=== PATIENT | female | born 1945 | race Caucasian/White ===

== ENCOUNTER 2018-08-16 15:12 | Inpatient (IN) ==
[2018-08-16 15:45] LABS: Hematocrit 32.9 % (37.0-47.0); Hemoglobin 10.5 gm/dL (12.5-16.0); Mean Cell Volume 87.3 fl (78-100); Mean Corpuscular Hemoglobin 27.9 pg (27-31); Mean Corpuscular Hgb Conc 31.9 g/dl (32-36); Mean Platelet Volume 8.7 fl (8-12.5); Neutrophil # 14.3 K/mm3 (1.3-6.0); Neutrophil % 78.2 % (42-75.0); Platelet Count 469 K/mm3 (150-450); Red Blood Count 3.77 M/mm3 (4.2-5.4); Red Cell Distribution Width 14.1 % (11.5-14.0); White Blood Count 18.3 K/mm3 (4.0-10.5)
[2018-08-16] MEDS ORDERED: NORMAL SALINE 1,000 ML IV ONE (15:56)
[2018-08-16] MEDS ORDERED: KETOROLAC TROMETHAMINE 30 MG/ML VIAL IV ONE (15:56)
[2018-08-16 15:58] LABS: Anion Gap 13.9 mmol/L (6.8-13.8); BUN/Creatinine Ratio 19.6 (9.0-21.6); Bilirubin, Total 0.5 mg/dL (0.0-1.1); Calcium * 9.5 mg/dL (7.9-10.9); Carbon Dioxide 27.9 mmol/L (24-32.6); Potassium 3.8 mmol/L (3.4-4.6)
--- NOTE | 2018-08-16 16:17 | ERNOTE ---
Abdominal HPI - Narrative Date of Service: 08/16/18 - General Chief Complaint: Abdominal Pain Time Seen by Provider: 08/16/18 16:12 Source: patient Exam Limitations: no limitations - Immun/Allergies/Home Medications Immunizatons: IMMUNIZATION HX Immunizations Up to Date Yes Allergies/Adverse Reactions: Allergies No Known Allergies Allergy (Unverified 08/16/18 15:30) Home Medications: HOME MEDICATIONS levothyroxine 100 mcg tablet 100 mcg PO DAILY #30 tab 05/19/18 [Last Taken Unknown] Atorvastatin Calcium [Lipitor] 10 mg PO HS 08/16/18 [Last Taken Unknown] Glimepiride 1 mg PO DAILY 08/16/18 [Last Taken Unknown] Hydrochlorothiazide [Hydrodiuril] 25 mg PO DAILY 08/16/18 [Last Taken Unknown] Lisinopril [Zestril] 40 mg PO DAILY 08/16/18 [Last Taken Unknown] Tetrahydrz/Dext 70/Peg 400/Pvp [Eye Drops] 15 ml OPHTHALMIC (EYE) DAILY 08/16/18 [Last Taken Unknown] metFORMIN HCL [Metformin HCl] 500 mg PO BID 08/16/18 [Last Taken Unknown] - Pain Score Pain Score #1 Pain Score: 7 Abdominal Pain Onset Location: RUQ, LUQ, epigastric Pain Radiation: no radiation - History of Present Illness Narrative: 73 yr old with history of DM, HTN , Hypothyroidism, and s/p C- section x 3 presents with one week history or upper abdominal pain. Reports it is intermittent but fairly frequent. Movement worsens her pain slightly. Laying down improves slightly. Presently rates her pain 7/10. Describes as "sore". Reports nausea with earlier emesis and dry heaves. Denies any emesis or diarrhea in the past 24 hrs. Denies any fever. Last ate this morning at 7 am. Date (Duration): 08/16/18 Time (Timing): 16:12 Timing: constant Quality: moderate, other - "sore" Activities at Onset: none Modifying Factors - (Improves): Present: rest Modifying Factors - (Worsens): Present: movement Associated Symptoms: Present: nausea, vomiting, loss of appetite. Absent: fever/chills Prior Abdominal Problems: Present: none Review of Systems - Review of Systems Constitutional: Absent: fever, weight loss EYE: Present: no symptoms reported ENT: Present: no symptoms reported Respiratory: Present: no symptoms reported Cardiology: Present: no symptoms reported Gastrointestinal/Abdominal: Present: nausea, vomiting, diarrhea, abdominal pain, eating less, drinking less Genitourinary: Absent: frequency, pain, dysuria, decreased urinary output Musculoskeletal: Present: no symptoms reported Skin: Present: no symptoms reported Neurological: Present: no symptoms reported Endocrine: Present: no symptoms reported Hematologic/Lymphatic: Present: no symptoms reported Psych: Present: no symptoms reported Medical History (Updated 08/16/18 @ 15:31 by Anne Lei RN) History of hypothyroidism Hx of diabetes mellitus Hx of primary hypertension Surgical History: Surgical History (Updated 08/16/18 @ 15:31 by Anne Lei RN) Hx of section Family History: Family History (Updated 08/16/18 @ 15:31 by Anne Lei RN) Other No pertinent family history Social History: Preferred Language Georgian Smoking Status Former smoker Alcohol Use none Drug Use none No Social History Section defined Physical Exam - Physical Exam General Appearance: Present: wd/wn, alert, no apparent distress Head Exam: Present: normal inspection, no evidence of injury Eye Exam: Normal inspection: bilateral, PERRL: bilateral, EOMI: bilateral Ears, Nose, Throat: Present: normal ENT inspection, normal pharynx. Absent: dry mucous membranes Neck: Present: normal inspection Respiratory: Present: no respiratory distress, normal breath sounds, no accessory muscle use, lungs clear Cardiovascular/Chest: Present: regular rate, rhythm, no murmur Gastrointestinal/Abdominal: Present: nondistended, soft, tenderness - RUQ, Epigastric region and LUQ, abnormal bowel sounds - decreased bowel sounds Back Exam: Present: normal inspection, normal range of motion, no CVA tenderness Extremity Exam: Present: normal inspection, non-tender, normal range of motion, no edema Neurological Exam: Present: alert, oriented, normal mood/affect, no motor/se nsory deficits, other - Talkative Skin Exam: Present: normal color, warm/dry Progress - Results and Orders Patient's Lab Results:: I have reviewed the patient's lab results. - CBC - WBC ^ 18.3, Hgb 10.5, Hct 32.9, Plt 469 CMP - Sodium 135, Potassium 3.8, BUN 22, Cr 1.12, Glucose 109, Calcium 9.5, AST 17, ALT 22, Alk phos 75, Amylase ^ 142, Lipase ^ 643 - Vital Signs Patient's Vital Signs:: I have reviewed the patient's vital signs. Vital Signs: Vital Signs 08/16/18 15:26 Temperature 36.2 C Pulse Rate 85 Respiratory Rate 15 Blood Pressure 177/68 H O2 Sat by Pulse Oximetry 100 - CT/Ultrasound CT/Ultrasound Narrative: Ct abd/pelvis: IMPRESSION: 1. Findings suggestive of acute cholecystitis with cholelithiasis, gallbladder wall thickening and adjacent pericholecystic fluid. Questionable choledocholithiasis with a small 1 to 2 mm stone at the distal aspect of the common bile duct. There is no significant dilatation of the common bile duct. Recommend clinical correlation. 2. Multiple scattered small indeterminate pulmonary nodules at the visualized lung bases, the largest measures up to 4 mm. Recommend follow-up dedicated noncontrast enhanced chest CT on a nonemergent basis to further evaluate. 3. Nonvisualization of the appendix. Ultrasound gallbladder - Numerous gallstones with thickened gallbladder wall - Progress/Reassessment Chief Complaint: Abdominal Pain Progress Note-Subjective: 08/16/18 16:17 Reviewed test results with patient and . 08/16/18 17:45 Reports "medicine helped" Denies any abdominal pain presently 08/16/18 20:[address] Heart who graciously agreed to come into the ER and see the patient. 08/16/18 21:14 Dr. Heart came in, reviewed the chart, images and examined patient. 08/16/18 21:54 Dr. Heart graciously accepted the patient for admission Departure Clinical Impression: Cholecystitis - Departure Disposition: Still a patient Condition: Good
[2018-08-16] MEDS ORDERED: DIATRIZOATE MEGLUMINE, SODIUM 30 ML BTL PO ONE (16:18)
[2018-08-16 18:52] LABS: Urine Appearance Slightly Cloudy (CLEAR); Urine Bilirubin Negative (NEGATIVE); Urine Blood 5 /ul (NEGATIVE); Urine Color Yellow; Urine Ketone Negative (NEGATIVE); Urine Nitrite Negative (NEGATIVE); Urine Protein Negative (NEGATIVE); Urine Urobilinogen Normal (NORMAL); Urine pH 5.5 pH (5.0-7.0)
[2018-08-16 18:53] LABS: Urine Bacteria TRACE; Urine RBC 0-5 /hpf (0-5)
--- NOTE | 2018-08-16 22:01 | HP ---
Chief Complaint - Chief Complaint Date of Service: 08/16/18 Time of Service: 21:39 Chief Complaint: abdominal pain and vomiting History of Present Illness: Relatively sudden onset of epigastric pain with vomiting on 08/08/18. Apparently only vomited once. Then got "dry heaves" and was sore all over. She was able to eat this past week, but not so much. No fever or chills. 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 Not so much pain now. constipated this week, but diarrhea after CT contrast. CT shows thick walled GB with inflammation. Multiple stones. Mention made of possible CBD stone however LFT's normal and U/S shows normal size duct. WBC elevated. Hgb 10.5. Plt 463. Amylase 142, lipase 643. Medical History (Updated 08/16/18 @ 17:59 by Cyndy Barakat RN) History of hypothyroidism Hx of diabetes mellitus Hx of primary hypertension Macular degeneration Surgical History: Surgical History (Updated 08/16/18 @ 15:31 by Anne Lei RN) Hx of section Family History: Family History (Updated 08/16/18 @ 15:31 by Anne Lei RN) Other No pertinent family history Social History: Preferred Language Latvian Smoking Status Former smoker Alcohol Use none Drug Use none No Social History Section defined Lives with , independent in ADL's Review Of Systems (GEN) - Review of Systems Generalized/Overall Review: Absent: Chills, Fever EENTM: Present: No Symptoms Reported, Other - Unaware of MD---found on exam Respiratory: Present: Other - mild HALLMAN. Absent: Cough, Shortness of Breath Cardiac: Absent: Chest Pain, Edema, Palpitations Abdominal: Present: Vomiting, Abdominal Pain, Other - see HPI Genitourinary: Present: Nocturia - usually twice. Absent: Burning, Frequency, Incontinent Musculoskeletal: Present: No Symptoms Reported, Other - aches from "dry heaves" Neurological: Absent: Headache, Seizure, Weakness Skin: Present: No Symptoms Reported Endocrine: Present: No Symptoms Reported Immunizations: IMMUNIZATION HX Immunizations Up to Date Yes Allergies/Adverse Reactions: Allergies Allergy/AdvReac Type Severity Reaction Status Date / Time No Known Allergies Allergy Unverified 08/16/18 15:30 Home Medications: HOME MEDICATIONS levothyroxine 100 mcg tablet 100 mcg PO DAILY #30 tab 03/11/19 [Last Taken Unknown] Atorvastatin Calcium [Lipitor] 10 mg PO HS 08/16/18 [Last Taken Unknown] Glimepiride 1 mg PO DAILY 08/16/18 [Last Taken Unknown] Hydrochlorothiazide [Hydrodiuril] 25 mg PO DAILY 08/16/18 [Last Taken Unknown] Lisinopril [Zestril] 40 mg PO DAILY 08/16/18 [Last Taken Unknown] Tetrahydrz/Dext 70/Peg 400/Pvp [Eye Drops] 15 ml OPHTHALMIC (EYE) DAILY 08/16/18 [Last Taken Unknown] metFORMIN HCL [Metformin HCl] 500 mg PO BID 08/16/18 [Last Taken Unknown] Exam - Exam Vital Signs: Vital Signs - Last Taken Temp 36.2 C 08/16/18 15:26 Pulse 87 08/16/18 21:11 Resp 18 08/16/18 21:11 BP 147/52 08/16/18 21:11 Pulse Ox 98 08/16/18 21:11 Constitutional: Present: Alert, Oriented x3, Cooperative, No distress, Obese ENT Exam: Present: normal ENT inspection, other - dentures Eye Exam: bilateral eye: normal inspection - normal sclera Neck: Present: full range of motion, normal inspection Back Exam: Present: no CVA tenderness Breasts: Present: Exam deferred Respiratory: Present: lungs clear Cardiovascular/Chest: Present: regular rate, rhythm Abdomen: Present: soft, obese, negative Null sign, other - palpable GB, mildly tender. 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 nml as tested, normal cerebellar test Appearance: Present: appropriate appearance, appropriate insight, neat Eye contact: Present: cooperative, good eye contact, normal speech Thoughts: Present: normal thought pattern Diagnostic Studies: Abnormal Lab Results 08/16/18 08/16/18 08/16/18 Range/Units 15:39 15:39 18:20 WBC 18.3 H (4.0-10.5) K/mm3 RBC 3.77 L (4.2-5.4) M/mm3 Hgb 10.5 L (12.5-16.0) gm/dL Hct 32.9 L (37.0-47.0) % MCHC 31.9 L (32-36) g/dl RDW 14.1 H (11.5-14.0) % Plt Count 469 H (150-450) K/mm3 Immature Gran % (Auto) 1.40 H (0.001-0.429) % Immature Gran # (Auto) 0.26 H (0.000-0.0310) K/mm3 Neutrophils % 78.2 H (42-75.0) % Lymphocytes % 11.2 L (20-51) % Neutrophils # 14.3 H (1.3-6.0) K/mm3 Monocytes # 1.5 H (0.0-1.0) k/mm3 Anion Gap 13.9 H (6.8-13.8) mmol/L Est GFR (Non-Af Amer) 50 L (60-130) mL/min Albumin 3.0 L (3.4-5.0) gm/dl Amylase 142 H (25-115) U/L Lipase 643 H (73-393) U/L Urine Blood 5 H (NEGATIVE) /ul Ur Leukocyte Esterase 100 H (NEGATIVE) /ul Urine WBC 5-10 H (0-5) /hpf Ur Epithelial Cells 5-10 H (0-5) /hpf Laboratory Results WBC 18.3 K/mm3 (4.0-10.5) H 08/16/18 15:39 RBC 3.77 M/mm3 (4.2-5.4) L 08/16/18 15:39 Hgb 10.5 gm/dL (12.5-16.0) L 08/16/18 15:39 Hct 32.9 % (37.0-47.0) L 08/16/18 15:39 MCV 87.3 fl (78-100) 08/16/18 15:39 MCH 27.9 pg (27-31) 08/16/18 15:39 MCHC 31.9 g/dl (32-36) L 08/16/18 15:39 RDW 14.1 % (11.5-14.0) H 08/16/18 15:39 Plt Count 469 K/mm3 (150-450) H 08/16/18 15:39 MPV 8.7 fl (8-12.5) 08/16/18 15:39 Immature Gran % (Auto) 1.40 % (0.001-0.429) H 08/16/18 15:39 Immature Gran # (Auto) 0.26 K/mm3 (0.000-0.0310) H 08/16/18 15:39 78.2 % (42-75.0) H 08/16/18 15:39 11.2 % (20-51) L 08/16/18 15:39 8.0 % (0.0-9) 08/16/18 15:39 0.8 % (0.0-3.0) 08/16/18 15:39 0.4 % (0.0-1.0) 08/16/18 15:39 Nucleated RBC % 0.0 k/mm3 (0-1) 08/16/18 15:39 14.3 K/mm3 (1.3-6.0) H 08/16/18 15:39 2.05 k/mm3 (1.5-3.5) 08/16/18 15:39 1.5 k/mm3 (0.0-1.0) H 08/16/18 15:39 0.2 k/mm3 (0.0-0.7) 08/16/18 15:39 Absolute Basophils 0.1 k/mm3 (0.0-0.1) 08/16/18 15:39 Sodium 135 mmol/L (132-142) 08/16/18 15:39 135 mmol/L (130-142) 08/16/18 15:39 Potassium 3.8 mmol/L (3.4-4.6) 08/16/18 15:39 Chloride 97 mmol/L (97-106) 08/16/18 15:39 Carbon Dioxide 27.9 mmol/L (24-32.6) 08/16/18 15:39 13.9 mmol/L (6.8-13.8) H 08/16/18 15:39 BUN 22 mg/dL (3-23) 08/16/18 15:39 1.12 mg/dL (0.4-1.4) 08/16/18 15:39 Est GFR (Non-Af Amer) 50 mL/min (60-130) L 08/16/18 15:39 19.6 (9.0-21.6) 08/16/18 15:39 109 mg/dL (70-110) 08/16/18 15:39 Calcium 9.5 mg/dL (7.9-10.9) 08/16/18 15:39 Calcium Adj for Albumin 10.0 mg/dL (8.4-10.2) 08/16/18 15:39 0.5 mg/dL (0.0-1.1) 08/16/18 15:39 AST 17 U/L (0-48) 08/16/18 15:39 ALT 22 U/L (19-67) 08/16/18 15:39 75 U/L (50-170) 08/16/18 15:39 8.0 gm/dL (6.2-8.2) 08/16/18 15:39 3.0 gm/dl (3.4-5.0) L 08/16/18 15:39 Amylase 142 U/L (25-115) H 08/16/18 15:39 643 U/L (73-393) H 08/16/18 15:39 Yellow 08/16/18 18:20 Slightly cloudy (CLEAR) 08/16/18 18:20 5.5 pH (5.0-7.0) 08/16/18 18:20 Ur Specific [place] 1.010 SP.GR. (1.005-1.010) 08/16/18 18:20 Negative mg/dL (NEGATIVE) 08/16/18 18:20 Negative mg/dL (NEGATIVE) 08/16/18 18:20 Negative mg/dL (NEGATIVE) 08/16/18 18:20 5 /ul (NEGATIVE) H 08/16/18 18:20 Negative (NEGATIVE) 08/16/18 18:20 Negative mg/dl (NEGATIVE) 08/16/18 18:20 Normal EU/dl (NORMAL) 08/16/18 18:20 Ur Leukocyte Esterase 100 /ul (NEGATIVE) H 08/16/18 18:20 0-5 /hpf (0-5) 08/16/18 18:20 5-10 /hpf (0-5) H 08/16/18 18:20 Ur Epithelial Cells 5-10 /hpf (0-5) H 08/16/18 18:20 Trace (NONE) 08/16/18 18:20 Culture to follow 08/16/18 18:20 CT and U/S images and reports reviewed Assessment/Plan - Assessment/Plan (1) Acute calculous cholecystitis Assessment: Pamphlet on GB disease and GB surgery reviewed with her and her and given to them. Will place in observation for IVF's and antibiotics. Serial exams and repeat CBC in am. Problem: Acute
[2018-08-16] MEDS ORDERED: PIPERACILLIN SODIUM/TAZOBACTAM 2.25 GM VIAL IV SCH (22:15)
[2018-08-16] MEDS ORDERED: PIPERACILLIN SODIUM/TAZOBACTAM 3.375 GM in DEXTROSE 5 % IN WATER 100 ML IV ONE ×2 (22:30)
[2018-08-17] MEDS: RINGER'S SOLUTION,LACTATED 1,000 ML IV PRN ×3 (00:40→17:00)
[2018-08-17] MEDS: PIPERACILLIN SODIUM/TAZOBACTAM 3.375 GM in DEXTROSE 5 % IN WATER 100 ML IV SCH ×6 (05:40→21:49)
[2018-08-17 06:00] LABS: Hematocrit 29.1 % (37.0-47.0); Hemoglobin 9.3 gm/dL (12.5-16.0); Mean Cell Volume 87.4 fl (78-100); Mean Corpuscular Hemoglobin 27.9 pg (27-31); Mean Platelet Volume 8.9 fl (8-12.5); Neutrophil # 16.2 K/mm3 (1.3-6.0); Platelet Count 416 K/mm3 (150-450); Red Blood Count 3.33 M/mm3 (4.2-5.4); Red Cell Distribution Width 14.3 % (11.5-14.0); White Blood Count 20.3 K/mm3 (4.0-10.5)
[2018-08-17 06:12] LABS: BUN/Creatinine Ratio 15.5 (9.0-21.6); Calcium * 8.9 mg/dL (7.9-10.9); Carbon Dioxide 26.9 mmol/L (24-32.6); Estimated Creat Clear 40.8; Potassium 3.9 mmol/L (3.4-4.6)
[2018-08-17] MEDS: LEVOTHYROXINE SODIUM 100 MCG TABLET PO SCH (07:02)
[2018-08-17] MEDS: LISINOPRIL 40 MG TABLET PO SCH (08:50)
[2018-08-17] MEDS: HYDROCHLOROTHIAZIDE 25 MG TABLET PO SCH (08:50)
[2018-08-17] MEDS ORDERED: PEG ophthalmic (eye) SCH (09:00)
[2018-08-17] MEDS ORDERED: TETRAHYDRZ ophthalmic (eye) SCH (09:00)
[2018-08-17] MEDS ORDERED: DEXT ophthalmic (eye) SCH (09:00)
[2018-08-17] MEDS ORDERED: PVP ophthalmic (eye) SCH (09:00)
[2018-08-17] MEDS ORDERED: ceFAZolin SODIUM/DEXTROSE,ISO 2 GM/50 ML BAG IV ONE (09:25)
--- NOTE | 2018-08-17 09:33 | PN ---
Subjective - Date and Time Seen Date: 08/17/18 Time: 09:27 Subjective Narrative: States comfortable. Amylase/lipase to normal, however WBC increased to 20. Objective - Review of Systems Generalized/Overall Review: Denies: Chills, Fever EENTM: Reports: No Symptoms Reported Respiratory: Reports: No Symptoms Reported Cardiac: Reports: No Symptoms Reported. Denies: Chest Pain Abdominal: Reports: Other - pain across upper abdomen Genitourinary Symptoms: Reports: No Symptoms Reported Musculoskeletal Complaints: Reports: No Symptoms Reported Neurological: Reports: No Symptoms Reported Skin: Reports: No Symptoms Reported - Vitals Vitals: Last Vital Signs Temp 37.6 C 08/17/18 07:18 Pulse 81 08/17/18 08:50 Resp 14 08/17/18 07:18 BP 126/52 08/17/18 08:50 Pulse Ox 96 08/17/18 07:18 - Abnormal Lab Findings Abnormal Lab Findings: Abnormal Lab Results 08/16/18 08/16/18 08/16/18 Range/Units 15:39 15:39 18:20 WBC 18.3 H (4.0-10.5) K/mm3 RBC 3.77 L (4.2-5.4) M/mm3 Hgb 10.5 L (12.5-16.0) gm/dL Hct 32.9 L (37.0-47.0) % MCHC 31.9 L (32-36) g/dl RDW 14.1 H (11.5-14.0) % Plt Count 469 H (150-450) K/mm3 Immature Gran % (Auto) 1.40 H (0.001-0.429) % Immature Gran # (Auto) 0.26 H (0.000-0.0310) K/mm3 Neutrophils % 78.2 H (42-75.0) % Lymphocytes % 11.2 L (20-51) % Neutrophils # 14.3 H (1.3-6.0) K/mm3 Monocytes # 1.5 H (0.0-1.0) k/mm3 Anion Gap 13.9 H (6.8-13.8) mmol/L Est GFR (Non-Af Amer) 50 L (60-130) mL/min Random Glucose (70-110) mg/dL Albumin 3.0 L (3.4-5.0) gm/dl Amylase 142 H (25-115) U/L Lipase 643 H (73-393) U/L Urine Blood 5 H (NEGATIVE) /ul Ur Leukocyte Esterase 100 H (NEGATIVE) /ul Urine WBC 5-10 H (0-5) /hpf Ur Epithelial Cells 5-10 H (0-5) /hpf 08/17/18 08/17/18 Range/Units 06:00 06:00 WBC 20.3 H (4.0-10.5) K/mm3 RBC 3.33 L (4.2-5.4) M/mm3 Hgb 9.3 L (12.5-16.0) gm/dL Hct 29.1 L (37.0-47.0) % MCHC (32-36) g/dl RDW 14.3 H (11.5-14.0) % Plt Count (150-450) K/mm3 Immature Gran % (Auto) 0.90 H (0.001-0.429) % Immature Gran # (Auto) 0.19 H (0.000-0.0310) K/mm3 Neutrophils % 80.0 H (42-75.0) % Lymphocytes % 10.9 L (20-51) % Neutrophils # 16.2 H (1.3-6.0) K/mm3 Monocytes # 1.5 H (0.0-1.0) k/mm3 Anion Gap (6.8-13.8) mmol/L Est GFR (Non-Af Amer) 56 L (60-130) mL/min Random Glucose 114 H (70-110) mg/dL Albumin (3.4-5.0) gm/dl Amylase (25-115) U/L Lipase (73-393) U/L Urine Blood (NEGATIVE) /ul Ur Leukocyte Esterase (NEGATIVE) /ul Urine WBC (0-5) /hpf Ur Epithelial Cells (0-5) /hpf - Exam Constitutional: Present: Alert, Oriented x3, Cooperative, No distress ENT Exam: Present: normal ENT inspection Neck: Present: full range of motion Respiratory: Present: no respiratory distress Cardiovascular/Chest: Present: regular rate, rhythm Abdomen: Present: obese, tender - RUQ /Rectal: Present: Exam deferred Extremity: Present: normal range of motion, no pedal edema, no calf tenderness Skin Exam: Present: pallor 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 Explained operation, possible complications, possible need to convert cathy open operation or use drainage tube. After an interactive discussion, her and her 's questions answered to their apparent satisfaction and informed consent obtained. - Problems/Diagnosis (1) Acute calculous cholecystitis Problem: Acute
[2018-08-17] MEDS ORDERED: RINGER'S SOLUTION,LACTATED 1,000 ML IV PRN (10:39)
--- NOTE | 2018-08-17 13:15 | ANES ---
Anesthesia Pre Procedure Eval Vitals/Labs: Last Vital Signs Temp 37.6 C 08/17/18 10:33 Pulse 77 08/17/18 10:33 Resp 18 08/17/18 10:33 BP 101/40 08/17/18 10:33 Pulse Ox 96 08/17/18 10:33 Laboratory Last Values WBC 20.3 K/mm3 (4.0-10.5) H 08/17/18 06:00 RBC 3.33 M/mm3 (4.2-5.4) L 08/17/18 06:00 Hgb 9.3 gm/dL (12.5-16.0) L 08/17/18 06:00 Hct 29.1 % (37.0-47.0) L 08/17/18 06:00 MCV 87.4 fl (78-100) 08/17/18 06:00 MCH 27.9 pg (27-31) 08/17/18 06:00 MCHC 32.0 g/dl (32-36) 08/17/18 06:00 RDW 14.3 % (11.5-14.0) H 08/17/18 06:00 Plt Count 416 K/mm3 (150-450) 08/17/18 06:00 MPV 8.9 fl (8-12.5) 08/17/18 06:00 Immature Gran % (Auto) 0.90 % (0.001-0.429) H 08/17/18 06:00 Immature Gran # (Auto) 0.19 K/mm3 (0.000-0.0310) H 08/17/18 06:00 80.0 % (42-75.0) H 08/17/18 06:00 10.9 % (20-51) L 08/17/18 06:00 7.5 % (0.0-9) 08/17/18 06:00 0.4 % (0.0-3.0) 08/17/18 06:00 0.3 % (0.0-1.0) 08/17/18 06:00 Nucleated RBC % 0.0 k/mm3 (0-1) 08/17/18 06:00 16.2 K/mm3 (1.3-6.0) H 08/17/18 06:00 2.20 k/mm3 (1.5-3.5) 08/17/18 06:00 1.5 k/mm3 (0.0-1.0) H 08/17/18 06:00 0.1 k/mm3 (0.0-0.7) 08/17/18 06:00 Absolute Basophils 0.1 k/mm3 (0.0-0.1) 08/17/18 06:00 Sodium 136 mmol/L (132-142) 08/17/18 06:00 136 mmol/L (130-142) 08/17/18 06:00 Potassium 3.9 mmol/L (3.4-4.6) 08/17/18 06:00 Chloride 100 mmol/L (97-106) 08/17/18 06:00 Carbon Dioxide 26.9 mmol/L (24-32.6) 08/17/18 06:00 13.0 mmol/L (6.8-13.8) 08/17/18 06:00 BUN 16 mg/dL (3-23) 08/17/18 06:00 1.03 mg/dL (0.4-1.4) 08/17/18 06:00 Est GFR (Non-Af Amer) 56 mL/min (60-130) L 08/17/18 06:00 15.5 (9.0-21.6) 08/17/18 06:00 114 mg/dL (70-110) H 08/17/18 06:00 Calcium 8.9 mg/dL (7.9-10.9) 08/17/18 06:00 Calcium Adj for Albumin 10.0 mg/dL (8.4-10.2) 08/16/18 15:39 0.5 mg/dL (0.0-1.1) 08/16/18 15:39 AST 17 U/L (0-48) 08/16/18 15:39 ALT 22 U/L (19-67) 08/16/18 15:39 75 U/L (50-170) 08/16/18 15:39 8.0 gm/dL (6.2-8.2) 08/16/18 15:39 3.0 gm/dl (3.4-5.0) L 08/16/18 15:39 Amylase 34 U/L (25-115) 08/17/18 06:00 77 U/L (73-393) 08/17/18 06:00 Yellow 08/16/18 18:20 Slightly cloudy (CLEAR) 08/16/18 18:20 5.5 pH (5.0-7.0) 08/16/18 18:20 Ur Specific [place] 1.010 SP.GR. (1.005-1.010) 08/16/18 18:20 Negative mg/dL (NEGATIVE) 08/16/18 18:20 Negative mg/dL (NEGATIVE) 08/16/18 18:20 Negative mg/dL (NEGATIVE) 08/16/18 18:20 5 /ul (NEGATIVE) H 08/16/18 18:20 Negative (NEGATIVE) 08/16/18 18:20 Negative mg/dl (NEGATIVE) 08/16/18 18:20 Normal EU/dl (NORMAL) 08/16/18 18:20 Ur Leukocyte Esterase 100 /ul (NEGATIVE) H 08/16/18 18:20 0-5 /hpf (0-5) 08/16/18 18:20 5-10 /hpf (0-5) H 08/16/18 18:20 Ur Epithelial Cells 5-10 /hpf (0-5) H 08/16/18 18:20 Trace (NONE) 08/16/18 18:20 Culture to follow 08/16/18 18:20 HOME MEDICATIONS levothyroxine 100 mcg tablet 100 mcg PO DAILY #30 tab 05/19/18 [Last Taken Unknown] Areds 2 1 tab PO BID 08/16/18 [Last Taken Unknown] Atorvastatin Calcium [Lipitor] 10 mg PO HS 08/16/18 [Last Taken Unknown] Glimepiride 1 mg PO DAILY 08/16/18 [Last Taken Unknown] Hydrochlorothiazide [Hydrodiuril] 25 mg PO DAILY 08/16/18 [Last Taken Unknown] Lisinopril [Zestril] 40 mg PO DAILY 08/16/18 [Last Taken Unknown] metFORMIN HCL [Metformin HCl] 500 mg PO BID 08/16/18 [Last Taken Unknown] Allergies/Adverse Reactions: Allergies Allergy/AdvReac Type Severity Reaction Status Date / Time cat dander Allergy Intermediate Itching Verified 08/16/18 22:28 - Planned Procedure Planned Procedure: Ninfa Agnes Medication List Reviewed:: Yes Allergies Verified: Yes Medical History (Updated 08/16/18 @ 23:45 by Fay Juarez) History of hypothyroidism Hx of diabetes mellitus Hx of primary hypertension Macular degeneration Surgical History (Updated 08/16/18 @ 15:31 by Anne Lei, TIMOTEO) Hx of section Family History (Updated 08/16/18 @ 22:27 by Karen Felipe RN) Father Macular degeneration Other No pertinent family history - Family Anesthesia History Family History:: no untoward family reactions to anesthesia, no familial bleeding tendencies, no family history of clotting disorders, no family history of premature - Airway/Neck/Teeth Within Normal Limits:: Yes Teeth Condition: missing Denture Type: Full upper, Full lower Mallampatti Score: 3 Thyromental (T-M) distance: > 6 cm Mandibulo Hyoid distance: > 3 cm - Respiratory Respiratory Physical: lungs clear Smoking Status: Never smoker Discussed smoking cessation including day of surgery: No Sleep Apnea currently treated: No Sleep Apnea by current assessment: No Discussed Risks/Treatment of SANTIAGO: No - Cardiovascular Tolerate Activity: Fair Heart Sounds: S1 & S2, Regular - Anesthesia Assessment and Plan ASA Class: PS, II, E Anesthesia Type Plan: General ET
[2018-08-17] MEDS ORDERED: BUPIVACAINE HCL/EPINEPHRINE 50 ML VIAL IJ ONE (16:25)
[2018-08-17] MEDS ORDERED: MUPIROCIN 22 APPL TUBE TP ONE (16:34)
[2018-08-17] MEDS ORDERED: ONDANSETRON HCL/PF 2 MG/ML VIAL IV PRN (17:20)
--- NOTE | 2018-08-17 17:21 | ANES ---
Post Anesthesia Discharge - Transfer of Care Transfer of Care handoff given to nurse: Yes - Discharge from PACU Discharge from PACU when meets criteria: Yes - Discharge to ASU Discharge to ASU-no complications/pt stable: Yes
--- NOTE | 2018-08-17 17:22 | ANES ---
Post Anesthesia Assessment - Vital Signs Vitals: Last Vital Signs Temp 37.6 C 08/17/18 10:33 Pulse 77 08/17/18 10:33 Resp 18 08/17/18 10:33 BP 101/40 08/17/18 10:33 Pulse Ox 96 08/17/18 10:33 Airway Patency: Normal - Mental Status Level Of Consciousness: Awake - Pain Level Pain Score: 0 - N/V Assessment Nausea/Vomiting Presence: None Dehydration:: No
[2018-08-17] MEDS ORDERED: HYDROmorphone HCL 1 MG/ML DISP.SYRIN IV PRN (19:45)
[2018-08-17] MEDS: ROSUVASTATIN CALCIUM 10 MG TABLET PO SCH (21:49)
[2018-08-18] MEDS: oxyCODONE HCL/ACETAMINOPHEN 1 TAB TABLET PO PRN ×4 (01:30→19:11)
[2018-08-18] MEDS: PIPERACILLIN SODIUM/TAZOBACTAM 3.375 GM in DEXTROSE 5 % IN WATER 100 ML IV SCH ×6 (05:40→21:51)
[2018-08-18] MEDS: LEVOTHYROXINE SODIUM 100 MCG TABLET PO SCH (05:40)
[2018-08-18 06:17] LABS: Hematocrit 27.4 % (37.0-47.0); Hemoglobin 8.5 gm/dL (12.5-16.0); Mean Corpuscular Hemoglobin 27.6 pg (27-31); Mean Platelet Volume 9.1 fl (8-12.5); Neutrophil # 18.6 K/mm3 (1.3-6.0); Neutrophil % 84.4 % (42-75.0); Platelet Count 407 K/mm3 (150-450); Red Blood Count 3.08 M/mm3 (4.2-5.4); Red Cell Distribution Width 14.6 % (11.5-14.0); White Blood Count 22.1 K/mm3 (4.0-10.5)
[2018-08-18 06:23] LABS: Albumin * 2.1 gm/dl (3.4-5.0); Anion Gap 12.5 mmol/L (6.8-13.8); Bilirubin, Total 0.6 mg/dL (0.0-1.1); Ca. Corrected For Albumin 9.6 mg/dL (8.4-10.2); Calcium * 8.4 mg/dL (7.9-10.9); Carbon Dioxide 27.4 mmol/L (24-32.6); Potassium 3.9 mmol/L (3.4-4.6); Total Protein 6.2 gm/dL (6.2-8.2)
[2018-08-18 06:36] LABS: BUN/Creatinine Ratio 13.3 (9.0-21.6)
--- NOTE | 2018-08-18 07:14 | OR ---
Operative Report - Dictated Report Narrative: OPERATIVE REPORT DATE OF OPERATION: 08/17/2018 PREOPERATIVE DIAGNOSIS: Acute cholecystitis, cholelithiasis POSTOPERATIVE DIAGNOSIS: Severe acute cholecystitis, cholelithiasis OPERATION: Attempted laparoscopic converted to open cholecystectomy SURGEON: Forest Heart MD ANESTHESIA: General endotracheal Armando Barcenas CRNA INDICATIONS FOR PROCEDURE: The patient is a 73-year-old female who presented through the emergency room with a one-week history of upper abdominal pain. CT scan revealed thick-walled gallbladder with inflammation. Ultrasound confirmed acute cholecystitis with cholelithiasis. FINDINGS: Severe acute cholecystitis with cholelithiasis. Adhesions from previous C-sections precluding laparoscopic cholecystectomy NARRATIVE OF PROCEDURE: The patient was identified preoperatively and prior to the administration of anesthetic a multidisciplinary timeout was observed. With the patient in the supine position SCDs were applied, 2 g of intravenous Ancef administered, and general endotracheal anesthetic administered. The patient's a bdomen was prepped with Betadine solution and a generous operating field outlined with 4 sterile towels. The remainder the patient was covered with a sterile disposable drape. An infraumbilical skin incision was made. Dissection was carried through the previous infraumbilical scar tissue along the umbilical stalk until the fascia of the midline was opened. The peritoneum was elevated and incised to allow entry into the abdomen under direct vision. A forefinger was inserted. Palpation revealed clear space to the left of the umbilicus and below, however there were adhesions just above the umbilicus in the right upper quadrant. A Chavez cannula was placed in the abdomen insufflated with CO2. The laparoscopic camera was introduced in the abdomen briefly explored. The camera could be passed into the left upper quadrant however could not be passed under the falciform ligament into the right upper quadrant. The scope was directed inferiorly and then around omental adhesions into the right upper quadrant. The dome of the liver on the right could be seen however the transverse colon and gallbladder were densely adherent to the anterior abdominal wall such that even with repositioning the patient the area could not be safely approached laparoscopically. Accordingly decision was made to convert to an open operation. The fascia and peritoneum in the midline at the umbilicus were then closed with interrupted sutures of #1 Vicryl. Subcutaneous space was obliterated with 3-0 chromic and the skin was secured with interrupted vertical mattress sutures of 4-0 nylon. The umbilical incision was then covered with a towel. At this juncture a separate sponge needle and instrument count was obtained and was found to be correct. A 4 fingerbreadth right subcostal skin incision was made. Dissection was carried through subcutaneous tissue with electrocautery until the fascia of the rectus sheath was encountered. This was incised. The rectus muscle was elevated over clamped and divided with electrocautery. The posterior rectus sheath was opened. The peritoneum was then elevated and incised to allow entry into the abdomen under direct vision. The dome of the liver appeared normal. There was an intensely inflamed distended gallbladder adherent to the anterior abdominal wall. This was freed by blunt dissection allowing placement of a Bookwalter self-retaining retractor. A plane was developed between the body of the gallbladder and transverse colon down to the neck of the gallbladder. At this juncture it was determined that sufficient exposure could be obtained to proceed with cholecystectomy. The dome of the gallbladder was opened and clear bile was suctioned collapsing the gallbladder to obtain a better view. The puncture site was clamped and used for traction. Saline was injected under the peritoneal covering of the gallbladder and using electrocautery a plane was identified along the liver bed. The body of the gallbladder was gradually dis sected free from the liver bed by using blunt and electrocautery dissection until the gallbladder had been freed circumferentially down to just above the neck. The gallbladder was then crossclamped and divided and the specimen passed the back table for later submission. The neck of the gallbladder was then retracted and developed circumferentially toward the expected location of the cystic duct. The cystic artery was identified, doubly clipped, and divided. Eventually the gallbladder remnant was pedicled on a confidently identified cystic duct. The duct was doubly clipped and divided. The second portion of the gallbladder was passed to the back table for submission. The operative field was then irrigated with warm saline and suctioned clean taking care to remove all blood and clots including the area over the dome of the right lobe of the liver. The field was inspected and found to be hemostatic. The previously placed clips were intact. The cystic duct stump was judged to be insufficient to allow for cholangiogram. The gallbladder bed was hemostatic with no evidence of bile leak. Those portions of the small and large intestine visualized appeared normal and uninjured. After receiving a correct sponge needle instrument count attention was turned to closing the wound. The peritoneum and posterior rectus sheath were approximated with interrupted sutures of #1 Vicryl. The anterior rectus sheath was approximated with interrupted sutures of #1 Vicryl. Subcutaneous space was obliterated with interrupted sutures of 2-0 chromic. The skin was secured with remberto. The operative sites were washed and dried. The subcostal incision was dressed with Bactroban ointment folded 4 x 4's and Medipore tape. The umbilical incision was dressed with Bactroban ointment folded 2 x 2 large Band-Aid and Medipore tape. The operative procedure was terminated at this point. The patient tolerated the anesthetic and procedure well without complication. Estimated blood loss was less than 100 mL. The gallbladder was submitted to pathology. The patient was transferred to the recovery room awake, extubated, and in stable condition. The patient will be converted to inpatient status. Reviewed and electronically signed
--- NOTE | 2018-08-18 07:27 | PN ---
Dictated Progress Note - Date and Time Seen: Date: 08/18/18 - Patient seen twice Time: 07:27 - Progress Note Narrative: Vital Signs - Last Taken Temp 37.4 C 08/18/18 06:37 Pulse 85 08/18/18 06:37 Resp 20 08/18/18 06:37 BP 122/54 08/18/18 06:37 Pulse Ox 95 08/18/18 06:37 Abnormal/Pending Laboratory Last 24 HRS 08/18/18 08/18/18 06:00 06:00 WBC 22.1 H RBC 3.08 L Hgb 8.5 L Hct 27.4 L MCHC 31.0 L RDW 14.6 H Immature Gran % (Auto) 0.70 H Immature Gran # (Auto) 0.16 H Neutrophils % 84.4 H Lymphocytes % 9.2 L Neutrophils # 18.6 H Monocytes # 1.2 H Est GFR (Non-Af Amer) 47 L Random Glucose 131 H AST 53 H Albumin 2.1 L Culture 08/16/18 18:20 Urine Culture - Final Urine,Clean Catch No Pathogens Isolated 08/16/18 15:38 Blood Culture - Preliminary Blood NO GROWTH 24 HOURS 08/16/18 16:09 Blood Culture - Preliminary Blood NO GROWTH 24 HOURS POD#1 open cholecystectomy Vital signs normal. Pain is incisional and tolerable with Percocet. She has been out of bed. Dressings dry. No flatus. Tolerated some solid p.o. intake. Urine a little dark but bilirubin/LFTs normal Her abdomen is tympanitic but soft. Dressings are dry and intact. Will encourage pulmonary toilet, ambulation, and push fluids. Tentative discharge tomorrow
[2018-08-18] MEDS ORDERED: BISACODYL 5 MG TABLET.DR PO ONE (07:28)
[2018-08-18] MEDS: LISINOPRIL 40 MG TABLET PO SCH (08:19)
[2018-08-18] MEDS: HYDROCHLOROTHIAZIDE 25 MG TABLET PO SCH (08:19)
--- NOTE | 2018-08-18 18:49 | PN ---
Subjective - Date and Time Seen Date: 08/18/18 Time: 18:46 Objective - Review of Systems Generalized/Overall Review: Reports: Weakness. Denies: Chills, Fever EENTM: Denies: No Symptoms Reported Respiratory: Denies: No Symptoms Reported Cardiac: Denies: No Symptoms Reported Abdominal: Reports: Other - Incisional discomfort, has not passed gas Genitourinary Symptoms: Reports: Other - Has urinated but not much volume Musculoskeletal Complaints: Reports: No Symptoms Reported Neurological: Reports: No Symptoms Reported Skin: Reports: No Symptoms Reported - Vitals Vitals: Last Vital Signs Temp 36.8 C 08/18/18 18:19 Pulse 84 08/18/18 18:19 Resp 16 08/18/18 18:19 BP 116/48 08/18/18 18: Pulse Ox 96 08/18/18 18:19 - Abnormal Lab Findings Abnormal Lab Findings: Abnormal Lab Results 08/18/18 08/18/18 Range/Units 06:00 06:00 WBC 22.1 H (4.0-10.5) K/mm3 RBC 3.08 L (4.2-5.4) M/mm3 Hgb 8.5 L (12.5-16.0) gm/dL Hct 27.4 L (37.0-47.0) % MCHC 31.0 L (32-36) g/dl RDW 14.6 H (11.5-14.0) % Immature Gran % (Auto) 0.70 H (0.001-0.429) % Immature Gran # (Auto) 0.16 H (0.000-0.0310) K/mm3 Neutrophils % 84.4 H (42-75.0) % Lymphocytes % 9.2 L (20-51) % Neutrophils # 18.6 H (1.3-6.0) K/mm3 Monocytes # 1.2 H (0.0-1.0) k/mm3 Est GFR (Non-Af Amer) 47 L (60-130) mL/min Random Glucose 131 H (70-110) mg/dL AST 53 H (0-48) U/L Albumin 2.1 L (3.4-5.0) gm/dl - Exam Constitutional: Present: Alert, Oriented x3, Cooperative, No distress ENT Exam: Present: normal ENT inspection Neck: Present: normal inspection Breasts: Present: Exam deferred Respiratory: Present: no respiratory distress Cardiovascular/Chest: Present: regular rate, rhythm Abdomen: Present: other - Distended but soft. Tympanitic. Dressings dry and intact /Rectal: Present: Exam deferred Extremity: Present: normal range of motion, no pedal edema, no calf tenderness Skin Exam: Present: normal color Neurologic: Present: mental health program specialist II-XII nml as tested, normal cerebellar test, no motor/sensory deficits Appearance: Present: appropriate appearance, appropriate insight, neat Eye contact: Present: cooperative, good eye contact, normal speech Thoughts: Present: normal thought pattern Assessment/Plan Plan Narrative: Will encourage ambulation and continued use of incentive spirometry. Discussed the importance of drinking lots of liquids. Tentative discharge tomorrow - Problems/Diagnosis (1) Acute calculous cholecystitis Problem: Acute
[2018-08-18] MEDS: ROSUVASTATIN CALCIUM 10 MG TABLET PO SCH (21:51)
[2018-08-19] MEDS: oxyCODONE HCL/ACETAMINOPHEN 1 TAB TABLET PO PRN ×3 (03:42→14:56)
[2018-08-19] MEDS: PIPERACILLIN SODIUM/TAZOBACTAM 3.375 GM in DEXTROSE 5 % IN WATER 100 ML IV SCH ×4 (05:11→15:00)
[2018-08-19] MEDS: LEVOTHYROXINE SODIUM 100 MCG TABLET PO SCH (05:12)
[2018-08-19] MEDS ORDERED: BISACODYL 5 MG TABLET.DR PO ONE (06:41)
[2018-08-19 07:52] LABS: Hematocrit 27.2 % (37.0-47.0); Hemoglobin 8.4 gm/dL (12.5-16.0); Mean Cell Volume 89.5 fl (78-100); Mean Corpuscular Hemoglobin 27.6 pg (27-31); Mean Corpuscular Hgb Conc 30.9 g/dl (32-36); Neutrophil # 18.1 K/mm3 (1.3-6.0); Neutrophil % 85.1 % (42-75.0); Platelet Count 439 K/mm3 (150-450); Red Blood Count 3.04 M/mm3 (4.2-5.4); Red Cell Distribution Width 14.4 % (11.5-14.0); White Blood Count 21.3 K/mm3 (4.0-10.5)
[2018-08-19] MEDS: HYDROCHLOROTHIAZIDE 25 MG TABLET PO SCH (08:05)
[2018-08-19] MEDS: LISINOPRIL 40 MG TABLET PO SCH (08:05)
--- NOTE | 2018-08-19 18:06 | DS ---
(1) Acute calculous cholecystitis Problem: Acute Description of Stay: She was admitted to observation, started on IV antibiotics. Initially elevated amylase and lipase normalized. She was prepared for cholecystectomy. Had attempted laparoscopic cholecystectomy 08/17/18 which was converted to an open procedure due to inflammation and adhesions. Findings of severe cholecystitis and cholelithiasis. SCD's and early ambulation for VTE prophylaxis, pre-and post-op antitibiotics. Tolerated the surgery well and changed to acute status. VS remained normal. Pain became incisional, controlled with po percocet. tolerated advanced diet and passed flattus. Ambulated independently. Dressings clean. WBC did climb, however was decreasing at D/C. Home, instructions and phone #'s given. Rx Percocet 5/325 #20. To arrange f/u appointment in 10 days. Procedures Performed: see notes below - attempted laparoscopic converted to open cholecystectomy Results and Findings: Pending Mircobiology Results 08/16/18 15:38 Blood Blood Culture - Preliminary NO GROWTH AFTER 48 HOURS 08/16/18 16:09 Blood Blood Culture - Preliminary NO GROWTH AFTER 48 HOURS Lab Pending Results 08/16/18 15:39: WBC 18.3 H, RBC 3.77 L, Hgb 10.5 L, Hct 32.9 L, MCV 87.3, MCH 27.9, MCHC 31.9 L, RDW 14.1 H, Plt Count 469 H, MPV 8.7, Immature Gran % (Auto) 1.40 H, Immature Gran # (Auto) 0.26 H, Neutrophils % 78.2 H, Lymphocytes % 11.2 L, Monocytes % 8.0, Eosinophils % 0.8, Basophils % 0.4, Nucleated RBC % 0.0, Neutrophils # 14.3 H, Lymphocytes # 2.05, Monocytes # 1.5 H, Eosinophils # 0.2, Absolute Basophils 0.1 08/16/18 15:39: Sodium 135, Plasma Sodium 135, Potassium 3.8, Chloride 97, Carbon Dioxide 27.9, Anion Gap 13.9 H, BUN 22, Creatinine 1.12, Est GFR (Non-Af Amer) 50 L, BUN/Creatinine Ratio 19.6, Random Glucose 109, Calcium 9.5, Calcium Adj for Albumin 10.0, Total Bilirubin 0.5, AST 17, ALT 22, Alkaline Phosphatase 75, Total Protein 8.0, Albumin 3.0 L, Amylase 142 H, Lipase 643 H 08/16/18 18:20: Urine Color Yellow, Urine Appearance Slightly cloudy, Urine pH 5.5, Ur Specific Hartshorn 1.010, Urine Protein Negative, Urine Glucose (UA) Negative, Urine Ketones Negative, Urine Blood 5 H, Urine Nitrate Negative, Urine Bilirubin Negative, Urine Urobilinogen Normal, Ur Leukocyte Esterase 100 H, Urine RBC 0-5, Urine WBC 5-10 H, Ur Epithelial Cells 5-10 H, Urine Bacteria Trace, Urine Culture Comments Culture to follow 08/17/18 06:00: WBC 20.3 H, RBC 3.33 L, Hgb 9.3 L, Hct 29.1 L, MCV 87.4, MCH 27.9, MCHC 32.0, RDW 14.3 H, Plt Count 416, MPV 8.9, Immature Gran % (Auto) 0.90 H, Immature Gran # (Auto) 0.19 H, Neutrophils % 80.0 H, Lymphocytes % 10.9 L, Monocytes % 7.5, Eosinophils % 0.4, Basophils % 0.3, Nucleated RBC % 0.0, Neutrophils # 16.2 H, Lymphocytes # 2.20, Monocytes # 1.5 H, Eosinophils # 0.1, Absolute Basophils 0.1 08/17/18 06:00: Sodium 136, Plasma Sodium 136, Potassium 3.9, Chloride 100, Carbon Dioxide 26.9, Anion Gap 13.0, BUN 16, Creatinine 1.03, Est GFR (Non-Af Amer) 56 L, BUN/Creatinine Ratio 15.5, Random Glucose 114 H, Calcium 8.9, Amylase 34, Lipase 77 08/17/18 14:15: Pathology Specimen Spec to path 08/18/18 06:00: WBC 22.1 H, RBC 3.08 L, Hgb 8.5 L, Hct 27.4 L, MCV 89.0, MCH 27.6, MCHC 31.0 L, RDW 14.6 H, Plt Count 407, MPV 9.1, Immature Gran % (Auto) 0.70 H, Immature Gran # (Auto) 0.16 H, Neutrophils % 84.4 H, Lymphocytes % 9.2 L, Monocytes % 5.3, Eosinophils % 0.1, Basophils % 0.3, Nucleated RBC % 0.0, Neutrophils # 18.6 H, Lymphocytes # 2.04, Monocytes # 1.2 H, Eosinophils # 0.0, Absolute Basophils 0.1 08/18/18 06:00: Sodium 134, Plasma Sodium 134, Potassium 3.9, Chloride 98, Carbon Dioxide 27.4, Anion Gap 12.5, BUN 16, Creatinine 1.20, Est GFR (Non-Af Amer) 47 L, BUN/Creatinine Ratio 13.3, Random Glucose 131 H, Calcium 8.4, Calcium Adj for Albumin 9.6, Total Bilirubin 0.6, AST 53 H, ALT 37, Alkaline Phosphatase 61, Total Protein 6.2, Albumin 2.1 L 08/19/18 07:09: WBC 21.3 H, RBC 3.04 L, Hgb 8.4 L, Hct 27.2 L, MCV 89.5, MCH 27.6, MCHC 30.9 L, RDW 14.4 H, Plt Count 439, MPV 9.0, Immature Gran % (Auto) 0.90 H, Immature Gran # (Auto) 0.19 H, Neutrophils % 85.1 H, Lymphocytes % 7.0 L, Monocytes % 5.9, Eosinophils % 0.9, Basophils % 0.2, Nucleated RBC % 0.0, Neutrophils # 18.1 H, Lymphocytes # 1.50, Monocytes # 1.3 H, Eosinophils # 0.2, Absolute Basophils 0.1 Discharge Location: Home Disposition: Home self-care Condition: Good Discharge Activity: Activity as tolerated, No Lifting Discharge Diet: Consistent carbs Referrals: Singh Wilkins MD [Primary Care Provider] - Problem Oriented Discharge Instructions to Patient/Family: Open Cholecystect shruti, Care After Additional Patient Instructions (free text): to call the office [phone] to arrange a f/u appointment 10 days Prescriptions (Any new or edited meds): oxyCODONE HCL/ACETAMINOPHEN [Percocet 5 MG/325 MG] 1 tab PO Q4H PRN #20 tab PRN Reason: Moderate Pain (Pain Scale 4-6) Complete Home Medications List: Complete Home Medication List: levothyroxine 100 mcg tablet 100 mcg PO DAILY #30 tab 05/19/18 Areds 2 1 tab PO BID 08/16/18 Atorvastatin Calcium [Lipitor] 10 mg PO HS 08/16/18 Glimepiride 1 mg PO DAILY 08/16/18 Hydrochlorothiazide [Hydrodiuril] 25 mg PO DAILY 08/16/18 Lisinopril [Zestril] 40 mg PO DAILY 08/16/18 metFORMIN HCL [Metformin HCl] 500 mg PO BID 08/16/18 oxyCODONE HCL/ACETAMINOPHEN [Percocet 5 MG/325 MG] 1 tab PO Q4H PRN #20 tab 08/19/18
[2018-08-19 18:20] VITALS: BP 137/57
== END 2018-08-19 18:50 | disposition home or self-care (01) | DRG 416 ==
LOC: ER 15:12 → MS 15:12
PROVIDERS: ADMIT Surgery; ATTEND Surgery
DX: I10 Essential (primary) hypertension; E03.9 Hypothyroidism, unspecified; Z79.84 Long term (current) use of oral hypoglycemic drugs; K80.00 Calculus of gallbladder with acute cholecystitis without obstruction; K66.0 Peritoneal adhesions (postprocedural) (postinfection); E11.9 Type 2 diabetes mellitus without complications
CPT/HCPCS: 36415; 74177; 76705; 80048; 80053; 81001; 82150; 83690; 85025; 87040; 87086; 88304; 96361; 96365; 96375; 99285; Q9967